=== PATIENT | female | born 1990 ===

== ENCOUNTER 2018-06-05 17:43 | Emergency (ER) | payer SELFPAY ==
[2015-11-13 15:35] VITALS: BMI 36.3
[2018-06-05] MEDS ORDERED: Lactated Ringer's 1,000 ML IV ONE (18:10)
--- NOTE | 2018-06-05 18:11 | OBHP ---
Datetime: 06/05/2018 18:08 IP Adm Impression: , intrauterine IP Chief Complaint Other: back painj 11/16 Admit Comment, IP Provider: at 35weekas came with c/o back pain started in afternoon, intermitt ent, 11/16,no vb , lof+fm obhx 2 pmh de med pnv all nkda psh de soch el ve closed a/p at 35weks r/o ctxs npo/ivf ua cont bailee and efm cont close observation Pelvic Type - PN: Adequate Extremities - PN: Normal Abdomen - PN: Normal Back - PN: Normal Breast - PN: Normal Lungs - PN: Normal Heart - PN: Normal Thyroid - PN: Normal Neurologic - PN: Normal HEENT - PN: Normal General - PN: Normal FHR - Baseline A Provider: 120 Contraction Comments Provider: irrg Vital Signs Provider: Reviewed; Within Normal Limits NICHD Variability Prov Fetus A: Moderate 6-25bpm NICHD Accel Fetus A IP Provider: 15X15 FHR Category Provider Fetus A: Category I NICHD Decel Fetus A IP Provider: None Dilatation, Provider: 0 Effacement, Provider: 0 Station, Provider: -3 Genitourinary Exam: Normal DTRs - PN: Normal
[2018-06-05 19:11] LABS: URINE BACTERIA RARE (<OCC); URINE BILIRUBIN NEGATIVE (NEGATIVE); URINE BLOOD NEGATIVE (NEGATIVE); URINE CLARITY Clear (Clear); URINE COLOR Straw (YELLOW); URINE GLUCOSE (UA) NORMAL (Normal); URINE LEUKOCYTE ESTERASE NEG Leu/uL (Negative); URINE PROTEIN NEGATIVE (NEGATIVE); URINE UROBILINOGEN NORMAL mg/dL (0.2-1.0)
--- NOTE | 2018-06-05 20:42 | OBDCSUM ---
Datetime: 06/05/2018 20:39 Discharged to, Provider: Home Follow up at, Provider: 1we Follow up in weeks, Provider: clinic Disch Activity Restrictions: Minimize stair-climbing; No sexual activity; Nothing in vagina - Interc ourse, tampons, douche Discharge Comment, Provider: dc home ptl give po y no sex procardia x 1 week Discharge Diagnosis Prov Other: 35we ctxs nst
[2018-06-06 01:34] VITALS: BP 151/72; PULSE 90; RESP 18; TEMP 97.3; O2SAT 100
--- NOTE | 2018-06-07 10:55 | OBHP ---
Datetime: 06/05/2018 18:08 Admit Comment, IP Provider: at 35weekas came with c/o back pain started in afternoon, intermitt ent, 11/16,no vb , lof+fm obhx 2 pmh de med pnv all nkda psh de soch el ve closed a/p at 35weks r/o ctxs npo/ivf ua cont bailee and efm cont close observation 20.40 . pt was rexamined at bed side. ve closed s/p terb plan dc home ptl give po y no sex procardia x 1 week
== END 2018-06-05 21:10 | disposition home or self-care (01) ==
LOC: C.EROB 17:43
DX: O26.93 Pregnancy related conditions, unspecified, third trimester (principal); Z3A.35 35 weeks gestation of pregnancy; M54.9 Dorsalgia, unspecified
CPT/HCPCS: 81001; 96372; 99283; J3105; J7120

== ENCOUNTER 2018-06-29 00:10 | Inpatient (IN) | payer SELFPAY ==
[2018-06-29 00:46] VITALS: BMI 35.2
[2018-06-29 01:15] LABS: SQUAMOUS EPITHIAL 7 /hpf (0-5); URINE BACTERIA FEW (<OCC); URINE BILIRUBIN NEGATIVE (NEGATIVE); URINE BLOOD NEGATIVE (NEGATIVE); URINE CLARITY Hazy (Clear); URINE COLOR Yellow (YELLOW); URINE GLUCOSE (UA) NORMAL (Normal); URINE LEUKOCYTE ESTERASE 3+ Leu/uL (Negative); URINE PROTEIN 1+ mg/dL (NEGATIVE); URINE UROBILINOGEN NORMAL mg/dL (0.2-1.0)
--- NOTE | 2018-06-29 02:01 | OBHP ---
Datetime: 06/29/2018 01:44 IP Adm Impression: Term, intrauterine IP Admit Plan: Observation/Evaluation Admit Comment, IP Provider: 27 yo female with an IUP at 38.5 weeks and presented with c/o o f UC's for acouple of hours. Admits to adequate FM and Denies LOF, VB or VD. Admits to seen here at 3 5 weeks with cx's and stopped with meds and then discharged home. PMHx: Elevated BP with first only PSHx: Denies Meds: PNV NKDA Social Hx: negative x 3 PE as noted above A/P Term Early labor/ Cx's Q 4-6 minutes UA with dehydration tracing reassuring NST Reactive Will ambulate for a while and reassess Drinking water Pelvic Type - PN: Adequate Extremities - PN: Normal Abdomen - PN: Normal Back - PN: Normal Breast - PN: Not Done Lungs - PN: Normal Heart - PN: Normal Thyroid - PN: Normal Neurologic - PN: Normal HEENT - PN: Normal General - PN: Normal Presentation-Admit: Vertex FHR - Baseline A Provider: 120 Membranes, Provider: Intact Contraction Comments Provider: 4-5 mins Gestation - Est Wks by US: 38.5 IP Hx Assessment: The History has been Reviewed and is Current EGA AdmitDate IP: 38.5 Vital Signs Provider: Reviewed; Within Normal Limits IP Chief Complaint: Uterine contractions; Maternal discomfort NICHD Variability Prov Fetus A: Moderate 6-25bpm NICHD Accel Fetus A IP Provider: 15X15 FHR Category Provider Fetus A: Category I NICHD Decel Fetus A IP Provider: None Dilatation, Provider: 3 Effacement, Provider: 90 Station, Provider: -3 Genitourinary Exam: Normal DTRs - PN: Normal
[2018-06-29] MEDS ORDERED: Lactated Ringer's 1,000 ML IV ONE (03:04)
--- NOTE | 2018-06-29 03:04 | OBADHP ---
Datetime: 06/29/2018 02:42 Admit Comment, IP Provider: 27 yo female with an IUP at 38.5 weeks and presented with c/o o f UC's for acouple of hours. Admits to adequate FM and Denies LOF, VB or VD. Admits to seen here at 3 5 weeks with cx's and stopped with meds and then discharged home. PMHx: Elevated BP with first only PSHx: Denies Meds: PNV NKDA Social Hx: negative x 3 PE as noted above A/P Term Early labor/ Cx's Q 4-6 minutes UA with dehydration tracing reassuring NST Reactive Ambulate for about one hour and then reexamined Drank about 2 Pitchers of water while walking UC's still Q 5 minutes apart SVE 4/100/-3 Will admit and anticipate Considering an Epidural but not sure yet Pelvic Type - PN: Adequate Extremities - PN: Normal Abdomen - PN: Normal Back - PN: Normal Breast - PN: Not Done Lungs - PN: Normal Heart - PN: Normal Thyroid - PN: Normal Neurologic - PN: Normal HEENT - PN: Normal General - PN: Normal Presentation-Admit: Vertex Membranes, Provider: Intact Gestation - Est Wks by US: 38.5 Vital Signs Provider: Reviewed IP Chief Complaint: Uterine contractions; Maternal discomfort FHR Category Provider Fetus A: Category I NICHD Decel Fetus A IP Provider: None Genitourinary Exam: Normal DTRs - PN: Normal EGA AdmitDate IP: 38.5 IP Adm Impression: Term, intrauterine ; Active labor; Intact Membranes IP Admit Plan: Admit to unit; Initiate labor protocol Datetime: 06/29/2018 01:44 FHR - Baseline A Provider: 120 Contraction Comments Provider: 4-5 mins IP Hx Assessment: The History has been Reviewed and is Current NICHD Variability Prov Fetus A: Moderate 6-25bpm NICHD Accel Fetus A IP Provider: 15X15 Dilatation, Provider: 3 Effacement, Provider: 90 Station, Provider: -3 Datetime: 06/05/2018 18:08 IP Chief Complaint Other: back painj 11/16
[2018-06-29 03:41] LABS: BASO # 0.1 K/uL (0.0-0.2); BASO % 0.9 % (0.0-2.0); EOS # 0.3 K/uL (0.0-0.7); EOS % 3.5 % (0.0-4.0); HEMOGLOBIN 12.1 g/dL (11.0-16.0); LYMPH # 2.2 K/uL (1.0-4.3); LYMPH % 22.8 % (20.0-40.0); MEAN CELL VOLUME 89.5 fL (81.0-99.0); MEAN CORPUSCULAR HEMOGLOBIN 29.7 pg (27.0-31.0); MEAN CORPUSCULAR HGB CONC 33.2 g/dL (33.0-37.0); MEAN PLATELET VOLUME 10.7 fL (7.2-11.7); MONO # 0.7 K/uL (0.0-0.8); MONO % 7.6 % (0.0-10.0); NEUT # 6.2 K/uL (1.8-7.0); NEUT % 65.2 % (50.0-75.0); RBC 4.08 Mil/uL (3.80-5.20); WHITE BLOOD COUNT 9.5 K/uL (4.8-10.8)
[2018-06-29 03:54] LABS: ALB/GLOB RATIO 1.1 (1.0-2.1); ALBUMIN 3.4 g/dL (3.5-5.0); ALT/SGPT 11 U/L (9-52); AST/SGOT 18 U/L (14-36); BLOOD UREA NITROGEN 9 mg/dL (7-17); CALCIUM 9.1 mg/dl (8.6-10.4); GFR NON-AFRICAN AMERICAN > 60
[2018-06-29] MEDS: Lactated Ringer's 1,000 ML IV SCH ×2 (04:05→11:15)
[2018-06-29] MEDS ORDERED: Oxytocin 30 UNIT in NS 500 ml 30 UNITS/500 ML BAG IV SCH (09:00)
[2018-06-29] MEDS ORDERED: Oxycodone/Acetaminophen 5/325 mg Tab PO PRN (09:41)
--- NOTE | 2018-06-29 10:06 | OBPN ---
Datetime: 06/29/2018 09:01 IP Progress Impression: Normal progression of labor; Reassuring heart rate IP Informed Consent Obtain: Vaginal Delivery IP Procedures: Artificial ROM; Sterile Vag Exam IP Progress Plan: Continue present management; Anticipate Vaginal Delivery Membranes, Provider: Ruptured Amniotic Fluid Color, Provider: Clear Contraction Comments Provider: q3min FHR - Baseline A Provider: 130 IP Progress Note Comment: Patient seen and examined at bedside. Patient is s/p ambulation now report ing some leakage of fluid. She is feeling contractions more frequently but does not want an epidural at this time. When examined patient had a bulging bag. Patient was AROM at the bedside with moderate amount of clear fluid. SVE: 10/100/0 A/P: Patient is a 27 year old at 38w5d in active labor -Category I tracing, reassuring status -Epidural anesthesia offered however patient declined -S/P AROM, moderate amount of clear fluid -We will continue present management -Anticipate Vaginal delivery Sasha Baez DO PGY-2 Pt seen and examined with Dr. Baez and all of her findings and POC were discussed and agreed with Vital Signs Provider: Reviewed NICHD Accel Fetus A IP Provider: 15X15 FHR Category Provider Fetus A: Category I NICHD Variability Prov Fetus A: Moderate 6-25bpm Dilatation, Provider: 10 Effacement, Provider: 100 Station, Provider: 0 NICHD Decel Fetus A IP Provider: None Datetime: 06/29/2018 02:42 Gestation - Est Wks by US: 38.5 Presentation-Admit: Vertex
--- NOTE | 2018-06-29 10:09 | OBDS ---
DELIVERY PERSONNEL Delivery Doctor: Malika Birmingham DO Scrub Nurse: Frida Galindo Elderly Companion: Elisa Saldana RN Resident: Dr. Baez MATERNAL INFORMATION Delivery Anesthesia: None Medications in Delivery: pitocin 20 in 1000 LR Estimated Blood Loss (ml): 200 Placenta Cultured: No Maternal Complications: None RN Comments: skin to skin initated immediately with breast feeding 0950 Provider Comments: This now P3 delivered a viable male via over intact perineum. ' s head was delivered VENANCIO in a controlled manner. No nuchal cord was appreciated. 's shoulders w ere delivered atraumatically. 's mouth and nose were suctioned with bulb syringe. Cord was clam ped and cut. Cord pH and cord blood were collected. An intact 3VC was delivered spontaneously. EBL 20 0cc. APGARS were 9 and 9. Mom and baby are recovering in stable condition. Dr Birmingham present for enti re delivery. Sasha Baez DO PGY-2 Assisted and directly supervised of this patient throught entire process LABOR SUMMARY EDC: 07/08/2018 00:00 No. Babies in Womb: 1 Attempted: No Labor Anesthesia: None LABOR INFORMATION Onset of Labor: 06/28/2018 19:00 Complete Dilatation: 06/29/2018 09:00 Oxytocin: N/A Group B Beta Strep: Negative Steroids Given: None Reason Steroids Not Administered: Not Applicable MEMBRANES Membranes Rupture Method: Artificial Rupture of Membranes: 06/29/2018 09:00 Length of Rupture (hrs): 0.53 Amniotic Fluid Color: Clear Amniotic Fluid Amount: Moderate Amniotic Fluid Odor: Normal STAGES OF LABOR Stage 1 hrs: 14 Stage 1 min: 0 Stage 2 hrs: 0 Stage 2 min: 32 Stage 3 hrs: 0 Stage 3 min: 7 Total Time in Labor hrs: 14 Total Time in Labor min: 39 VAGINAL DELIVERY Episiotomy: None Laceration Extension: N/A Laceration Type: None Initial Vag Sponge Count: 10 Final Vag Sponge Count: 10 Initial Vag Sharps Count: 0 Final Vag Sharps Count: 0 Sponge Count Correct: Yes Sharps Count Correct: Yes BABY A INFORMATION Infant Delivery Date/Time: 06/29/2018 09:32 Method of Delivery: Vaginal Born in Route : No : N/A Forceps: N/A Vacuum Extraction: N/A Shoulder Dystocia : Yes SHOULDER DYSTOCIA BABY A Delivery Date/Time: 06/29/2018 09:32 PRESENTATION/POSITION BABY A Presentation: Cephalic Cephalic Presentation: Vertex Vertex Position: Left Occipital Anterior Breech Presentation: N/A PLACENTA INFORMATION BABY A Placenta Delivery Time : 06/29/2018 09:39 Placenta Method of Delivery: Spontaneous Placenta Status: Delivered SCORES BABY A Heart Rate 1 min: >100 bpm Resp Effort 1 min: Good Cry Reflex Irritability 1 min: Cough or Sneeze or Pulls Away Muscle Tone 1 min: Active Motion Color 1 min: Body Register, Extremities Blue Resuscitation Effort 1 min: N/A SCORE 1 MIN: 9 Heart Rate 5 min: >100 bpm Resp Effort 5 min: Good Cry Reflex Irritability 5 min: Cough or Sneeze or Pulls Away Muscle Tone 5 min: Active Motion Color 5 min: Body Register, Extremities Blue Resuscitation Effort 5 min: N/A SCORE 5 MIN: 9 INFORMATION BABY A Gestational Age at Delivery: 38.5 Gestational Status: Term Infant Outcome : Liveborn Condition : Stable Sex: Male IDENTIFICATION/MEDS BABY A ID Band Number: [id number] ID Band Location: Left Leg; Left Arm Sensor Applied: Yes Sensor Number: [id number] Sensor Location : Cord Clamp WEIGHT/LENGTH BABY A Infant Birthweight (gms): 3555 Weight (lb): 7 Weight (oz): 13 Length Inches: 18.75 Infant Length cms: 47.6 CORD INFORMATION BABY A No. Cord Vessels: 3 Nuchal Cord : N/A Infant Suction: Mouth; Nose ASSESSMENT BABY A Complications: None Physical Findings at Delivery: Within Normal Limits Respirations: Appears Normal Instrument Lens Generator/ALS Called : No Transferred To: Remains with Mother
[2018-06-30 08:10] VITALS: RESP 18
[2018-06-30 08:49] LABS: BASO # 0.1 K/uL (0.0-0.2); BASO % 0.8 % (0.0-2.0); EOS # 0.3 K/uL (0.0-0.7); EOS % 2.6 % (0.0-4.0); HEMOGLOBIN 11.7 g/dL (11.0-16.0); LYMPH # 2.3 K/uL (1.0-4.3); LYMPH % 23.4 % (20.0-40.0); MEAN CELL VOLUME 90.4 fL (81.0-99.0); MEAN CORPUSCULAR HEMOGLOBIN 30.7 pg (27.0-31.0); MEAN CORPUSCULAR HGB CONC 33.9 g/dL (33.0-37.0); MEAN PLATELET VOLUME 10.2 fL (7.2-11.7); MONO # 0.4 K/uL (0.0-0.8); MONO % 4.1 % (0.0-10.0); NEUT # 6.9 K/uL (1.8-7.0); NEUT % 69.1 % (50.0-75.0); NRBC % 0.1 % (0.0-2.0); RBC 3.82 Mil/uL (3.80-5.20); RED CELL DISTRIBUTION WIDTH 15.3 % (11.5-14.5)
--- NOTE | 2018-06-30 11:07 | OBPPN ---
Datetime: 06/30/2018 09:03 PP Pain Prov: Within normal limits PP Nausea Prov: Denies PP Flatus Prov: No PP BM Prov: No PP Progress Prov: Normal PP Impression Prov: Normal progression PP Plan Prov: Continue present management PP Progress Note Prov: Patient seen and examined at bedside. Per nursing no acute events overnight. Patient is doing well, pain is controlled. Lochia is heavy. She is ambulating and tolerating diet. Ur inating without difficulty. Denies passing flatus or having a bowel movement. Offers no other complai nts at this time. VS: 96/53 79 97.8 Gen: AAOx3 CV: RRR Lungs: CTA B/L Abd: Soft, fundus firm 2 fingerbreaths above umbilicus Ext: No calf tenderness Labs: 9.5>12.1/36.5<190 F/U AM CBC O positive Rubella immune A/P: 27 year old at 38w5d s/p PPD#1 -Stable, afebrile -Pain control with motrin as needed -F/U AM CBC -Encourage ambulation, hydration, breast feeding -Continue routine care Plan discussed with Dr Zafar Baez DO PGY-2 Attending Note: patient seen, evaluated and examined by me with the Resident. I agree with the abo ve as documented Vital Signs Provider PP: Reviewed
[2018-07-01 00:02] VITALS: TEMP 97.6
[2018-07-01 08:21] VITALS: BP 103/63; PULSE 78; O2SAT 98
[2018-07-01] MEDS ORDERED: Influenza Vaccine 60 mcg/0.5 mL SYR (4YR UP) IM ONE (10:19)
== END 2018-07-01 13:00 | disposition home or self-care (01) | DRG 807 ==
LOC: C.EROB 00:10 → C.4D 03:23 → C.4M 10:41
PROVIDERS: ADMIT Obstetrics & Gynecology; ATTEND Obstetrics & Gynecology
PROC: 10E0XZZ Delivery of Products of Conception, External Approach (ICD-10-PCS; principal; 2018-06-29)
PROC: 10907ZC Drainage of Amniotic Fluid, Therapeutic from Products of Conception, Via Natural or Artificial Opening (ICD-10-PCS; 2018-06-29)
DX: O99.284 Endocrine, nutritional and metabolic diseases complicating childbirth (principal); Z37.0 Single live birth; E86.0 Dehydration; O66.0 Obstructed labor due to shoulder dystocia; Z3A.38 38 weeks gestation of pregnancy